=== PATIENT | male | born 1965 | race Caucasian/White ===

== ENCOUNTER 2017-07-04 20:27 | Emergency (ER) | payer BC ==
[~2017-07-04] VITALS: Wt 113.4 kg
[2017-07-04] MEDS ORDERED: HUMALOG100 UNIT/1 SQ (20:51)
[2017-07-04] MEDS ORDERED: LEVEMIR100 UNIT/1 SQ (20:52)
[2017-07-04] MEDS ORDERED: HUMALOG100 UNIT/2 SQ (21:00)
== END 2017-07-04 21:15 | disposition home or self-care (01) ==
LOC: ED 20:27
DX: R73.9 Hyperglycemia, unspecified (principal); Z79.899 Other long term (current) drug therapy